=== PATIENT | female | born 1990 | race Caucasian/White ===

== ENCOUNTER 2018-12-07 10:59 | Emergency (ER) | payer BC ==
[2018-12-07 11:50] VITALS: BP 137/75
--- NOTE | 2018-12-07 12:19 | UC ---
Complaint Female HPI - HPI Summary HPI Summary: Pt presents with 4 days of urinary frequency, urgency x 5 days. Pt denies fevers , chills. No n/v. No back pain. No vaginal discharge, itching, drainage. No concern for STD. no possibility of . no analgesia taken Medications reviewed - History Of Current Complaint Chief Complaint: UCGU Stated Complaint: URINARY Time Seen by Provider: 12/07/18 11:55 Hx Obtained From: Patient Hx Last Menstrual Period: 11/15/18 Onset/Duration: Gradual Onset Timing: Intermittent Severity Initially: Mild Severity Currently: Mild Pain Intensity: 2 - Allergies/Home Medications Allergies/Adverse Reactions: Allergies Allergy/AdvReac Type Severity Reaction Status Date / Time No Known Allergies Allergy Verified 12/07/18 11:47 Home Medications: Home Medications Levocetirizine Dihydrochloride [Xyzal Allergy 24Hr] 5 mg PO DAILY 12/07/18 [ History Confirmed 12/07/18] PMH/Surg Hx/FS Hx/Imm Hx Previously Healthy: Yes - Surgical History Surgical History: Yes Surgery Procedure, Year, and Place: wisdom teeth. tonsillectomy - Family History Known Family History: Positive: Non-Contributory - Social History Occupation: Employed Full-time Lives: With Family Alcohol Use: Occasionally Substance Use Type: None Smoking Status (MU): Never Smoked Tobacco Review of Systems All Other Systems Reviewed And Are Negative: Yes Constitutional: Positive: Negative. Negative: Fever Genitourinary: Positive: Dysuria, Urgency. Negative: Vaginal/Penile Burning, Vaginal/Penile Itching, Vaginal/Penile Discharge, Vaginal/Penile Pain, Vaginal/ Penile Tenderness Is Patient Immunocompromised?: No Physical Exam - Summary Physical Exam Summary: Vital Signs Reviewed: Yes A+Ox3, no distress Eyes: Conjunctiva Clear, MICHEL. EOM intact and full ENT: Hearing grossly normal TM x 2 clear, mmoist, uvula midline, no exudate, no erythema Neck: Positive: Supple Respiratory: Positive: No respiratory distress, No accessory muscle use + CTA throughout no w/r Cardiovascular: RRR nl s1, s2 no m/r CBT <2 sec abd soft + BS nd mild suprapubic discomfort, no guarding, no distension no CVA Musculoskeletal Exam: CHÁVEZ x 4 without difficulty Strength Intact, ROM Intact Neurological: Positive: Alert, + sensation throughout Psychological: Positive: Normal Response To Family Skin: Positive: no rash, no ecchymosis Triage Information Reviewed: Yes Vital Signs: Initial Vital Signs Temp 97.6 F 12/07/18 11:47 Pulse 70 12/07/18 11:47 Resp 16 12/07/18 11:47 BP 137/75 12/07/18 11:47 Pulse Ox 100 12/07/18 11:47 Complaint Female Dx - Course Course Of Treatment: Patient presents to emergency Department with 4 days progressive urinary urgency , dysuria, frequency. Patient without any fevers, back pain, vaginal discharge , possibly . Vital signs are stable. On exam patient with mild suprapubic discomfort but otherwise non-concerning exam. Patient chance consistent with UTI. We'll culture urine. Patient declined a Pyridium. Cephalexin, Motrin/Tylenol. Hydrate. Strict return precautions. Patient aware of urine culture. Patient's questions asked and answered. Patient was given a dose of Diflucan as she states she frequently gets vaginal yeast infections. - Differential Dx/Diagnosis Provider Diagnosis: Urinary tract infection Discharge - Sign-Out/Discharge Documenting (check all that apply): Patient Departure All imaging exams completed and their final reports reviewed: No Studies - Discharge Plan Condition: Stable Disposition: HOME Prescriptions: Cephalexin CAP* [Keflex 500 CAP*] 500 mg PO BID #14 cap Fluconazole [Diflucan 150 MG (NF)] 150 mg PO ONCE PRN #1 tab PRN Reason: vaginal yeast infection Patient Education Materials: Urinary Tract Infection in Women (ED) Referrals: Kayla Berry MD [Primary Care Provider] - Additional Instructions: - stay well hydrated - drink plenty of non-alcoholic, non caffinated beverages - your urine will be further tested - if you require any changes to your treatment, we will contact you - this usually take 2 days - Contact your primary doctor to arrange a follow-up appointment next week. Contact your doctor or return with questions or concerns - Take your antibiotics exactly as prescribed until gone - Okay to alternate ibuprofen (Advil, Motrin) and Tylenol every 3 hours for pain. Take with food - you have been given a prescription for diflucan - okay to take this if you develop a vaginal yeast infection from the antibiotics - Call your doctor or return with questions or concerns - Billing Disposition and Condition Condition: STABLE Disposition: Home
== END 2018-12-07 12:32 | disposition home or self-care (01) ==
LOC: UCCORT 10:59
DX: N39.0 Urinary tract infection, site not specified (principal)
CPT/HCPCS: 81003; 87086; 99202; G0463